=== PATIENT | male | born 1975 | race Caucasian/White ===

== ENCOUNTER → 2017-01-14 | Outpatient (CLI) | payer OTHER ==
--- NOTE | 2017-01-14 10:05 | KCIC ---
Examination: CT maxillofacial bones without contrast HISTORY: History of sleep apnea, chronic sinus disease, congestion COMPARISON: None available TECHNIQUE: Axial CT images of the maxillofacial bones were performed without contrast. Coronal and sagittal reformats were performed. Exposure: One or more of the following individualized dose reduction techniques were utilized for this examination: 1. Automated exposure control 2. Adjustment of the mA and/or kV according to patient size 3. Use of iterative reconstruction technique FINDINGS: The bilateral orbital globes appear intact. The retro-orbital fat is maintained. The visualized parotid glands grossly appears unremarkable. Moderate mucosal thickening identified in the bilateral maxillary sinuses with moderate to large mucous retention cyst or polyp identified in the left maxillary sinus. There is narrowing of the ostiomeatal complex. There is moderate mucosal thickening identified in the bilateral ethmoidal sinuses Mild mucosal thickening identified in the bilateral frontal sinuses. The sphenoid sinuses are clear. The bilateral mastoid air cells are clear. The bilateral orbital rogel appear intact. Impression: Diffuse moderate mucosal thickening of the bilateral maxillary sinuses and ethmoidal sinus likely chronic sinus disease causing narrowing of the bilateral ostiomeatal complex. There is moderate large mucous retention cyst or polyp identified in the left maxillary sinus. Electronically signed by: Hal Cardona MD (01/14/2017 10:01 AM) [id number]
== END | disposition home or self-care (01) ==
LOC: KCIC CT 08:16
PROVIDERS: ATTEND Otolaryngology
DX: G47.33 Obstructive sleep apnea (adult) (pediatric) (principal); R09.81 Nasal congestion
CPT/HCPCS: 70486